=== PATIENT | female | born 1960 | race Caucasian/White ===

== ENCOUNTER → 2017-11-07 | Outpatient (CLI) | payer OTHER ==
[~2017-11-07] MED LIST: LEVO112T2 PO
[2017-11-07 15:42] LABS: MICROSCOPIC NOT IND
[2017-11-07 15:45] LABS: BASOPHILS # (AUTO) 0.03 x10^3/uL (0-0.1); BASOPHILS % (AUTO) 1 % (0-1); EOSINOPHILS # (AUTO) 0.08 x10^3/uL (0-0.4); EOSINOPHILS % (AUTO) 1 % (1-7); LYMPHOCYTES # (AUTO) 2.44 x10^3/uL (1-3.4); LYMPHOCYTES % (AUTO) 43 % (22-44); MD NO; MEAN CORPUSCULAR HEMOGLOBIN 31.6 pg (27.0-34.8); MEAN CORPUSCULAR HGB CONC 33.8 g/dL (32.4-35.8); MEAN CORPUSCULAR VOLUME 93.4 fL (80-100); MEAN PLATELET VOLUME 8.2 fL (7.4-10.4); MONOCYTES # (AUTO) 0.32 x10^3/uL (0.2-0.8); MONOCYTES % (AUTO) 6 % (2-9); NEUTROPHILS # (AUTO) 2.78 x10^3/uL (1.8-6.8); NEUTROPHILS % (AUTO) 49 % (42-75); PLATELET COUNT 282 x10^3/uL (130-400); RED BLOOD COUNT 4.61 x10^6/uL (3.82-5.3); RED CELL DISTRIBUTION WIDTH 14.1 % (9.6-15.2)
[2017-11-07 15:47] LABS: CULTURE INDICATED? NO
[2017-11-07 15:51] LABS: ANION GAP 7 mmol/L (5-15); CALCIUM 8.9 mg/dL (8.5-10.1); CHLORIDE 108 mmol/L (98-107); CREATININE 0.84 mg/dL (0.55-1.02)
[2017-11-07 16:07] LABS: INTERNATIONAL NORMALIZED RATIO 0.96 (0.93-1.1)
== END | disposition home or self-care (01) ==
LOC: STAR 14:36
PROVIDERS: ATTEND Neurological Surgery
DX: Z01.818 Encounter for other preprocedural examination (principal); M43.06 Spondylolysis, lumbar region; M54.16 Radiculopathy, lumbar region
CPT/HCPCS: 36415; 71046; 80048; 81003; 85025; 85610; 85730; 93005

== ENCOUNTER 2017-11-12 10:54 | Inpatient (IN) | payer OTHER ==
[~2017-11-12] VITALS: Ht 160 cm; Wt 71.0 kg
[2017-11-12] MEDS ORDERED: DEXAMETHASONE 4 MG/ML, 1ML ONE (10:56)
[2017-11-12] MEDS ORDERED: SUCCINYLCHOLINE 20 MG/ML, 10ML ONE (10:56)
[2017-11-12] MEDS ORDERED: ROCURONIUM 10MG/ML,5ML ONE (10:56)
[2017-11-12] MEDS ORDERED: CEFAZOLIN 1,000 MG ONE (10:56)
[2017-11-12 11:15] VITALS: BP 114/72
[2017-11-12] MEDS ORDERED: BACITRACIN OINT 500U/GM, 15 GM ONE (11:45)
[2017-11-12] MEDS ORDERED: BUPIVACAINE/PF-EPI 0.25% 1:200K ONE (11:45)
[2017-11-12] MEDS ORDERED: THROMBIN 5,000 UNIT VIAL TP ONE ×2 (11:45→14:09)
[2017-11-12] MEDS ORDERED: BACITRACIN 50,000 UNIT ONE (11:45)
[2017-11-12] MEDS ORDERED: BUPIVACAINE 0.25% ONE (11:45)
[2017-11-12] MEDS ORDERED: MIDAZOLAM 1 MG/ML, 2ML ONE (11:52)
[2017-11-12] MEDS ORDERED: PROPOFOL 50 ML ONE (11:52)
[2017-11-12] MEDS ORDERED: FENTANYL PF 100 MCG/2ML ONE ×2 (11:52→14:42)
[2017-11-12] MEDS ORDERED: BUPIVACAINE/PF-EPI 0.25% 1:200K INFIL ONE (14:08)
[2017-11-12] MEDS ORDERED: BUPIVACAINE 0.25% INFIL ONE (14:08)
[2017-11-12] MEDS ORDERED: BACITRACIN 50,000 UNIT IM ONE (14:09)
[2017-11-12] MEDS ORDERED: HYDROmorphone 1 MG/ML, 1ML IV PRN (14:30)
[2017-11-12] MEDS ORDERED: ACETAMINOPHEN 325 MG TABLET PO PRN (14:30)
[2017-11-12] MEDS ORDERED: HYDROcodone/APAP 7.5-325MG/15ML UDC PO PRN (14:30)
[2017-11-12] MEDS ORDERED: LABETALOL 5MG/ML, 20ML IV PRN ×2 (14:30→16:30)
[2017-11-12] MEDS ORDERED: MEPERIDINE/PF 25MG/0.5ML IVPush PRN (14:30)
[2017-11-12] MEDS ORDERED: ALBUTEROL/IPRATROPIUM 2.5MG/0.5MG, 3 ML NPPB PRN (14:30)
[2017-11-12] MEDS ORDERED: ALBUTEROL SULFATE 2.5 MG/3 ML NPPB PRN (14:30)
[2017-11-12] MEDS ORDERED: hydrALAzine 20 MG/ML, 1ML IV PRN (14:30)
[2017-11-12] MEDS ORDERED: OXYcodone 5 MG/5 ML ORAL.SOL UDC PO PRN (14:30)
[2017-11-12] MEDS ORDERED: DIAZEPAM 5 MG/ML, 2ML IVPush PRN (14:30)
[2017-11-12] MEDS ORDERED: ONDANSETRON 2MG/ML, 2ML IV PRN ×2 (14:30→16:30)
[2017-11-12] MEDS ORDERED: PROMETHAZINE 25 MG/ML, 1ML IV PRN (14:30)
[2017-11-12] MEDS ORDERED: EPHEDRINE 50 MG/ML, 1ML IVPush PRN (14:30)
[2017-11-12] MEDS ORDERED: ONDANSETRON 2MG/ML, 2ML ONE (14:42)
[2017-11-12] MEDS ORDERED: OXYcodone 5 MG/5 ML ORAL.SOL UDC ONE (14:43)
[2017-11-12] MEDS: FENTANYL PF 100 MCG/2ML IV PRN ×2 (14:46→15:08)
[2017-11-12 15:55] VITALS: BP 96/61
[2017-11-12] MEDS ORDERED: BISACODYL 10 MG SUPP PR PRN (16:30)
[2017-11-12] MEDS ORDERED: HYDROmorphone 2MG TABLET PO PRN (16:30)
[2017-11-12] MEDS ORDERED: MAGNESIUM HYDROXIDE 8%, 30ML UDC PO PRN (16:30)
[2017-11-12] MEDS: LABETALOL 5MG/ML, 20ML IV SCH (16:30)
[2017-11-12] MEDS ORDERED: OXYcodone/APAP 5/325MG TABLET PO PRN (16:30)
[2017-11-12] MEDS ORDERED: HYDROmorphone 2 MG/ML, 1ML IM PRN (16:30)
[2017-11-12] MEDS ORDERED: DIPHENHYDRAMINE 50 MG/ML, 1ML IVPush PRN (16:30)
[2017-11-12] MEDS ORDERED: PROMETHAZINE 25 MG/ML, 1ML IM PRN (16:30)
[2017-11-12] MEDS: METHOCARBAMOL 750 MG TABLET PO SCH (16:54)
[2017-11-12] MEDS: D5%-0.9% NACL 1,000 ML IV SCH (16:55)
[2017-11-12] MEDS: CEFAZOLIN PMX 1GM/50ML 50 ML IVPB SCH (18:49)
[2017-11-12 19:18] VITALS: BP 105/63
[2017-11-12] MEDS: HYDROcodone/APAP 5/325 TABLET PO PRN (19:49)
[2017-11-12] MEDS: ATORVASTATIN 40 MG TABLET PO SCH (19:54)
[2017-11-13] VITALS (7 sets, daily range): BP systolic 82–136; BP diastolic 46–68
[2017-11-13] MEDS: METHOCARBAMOL 750 MG TABLET PO SCH ×4 (00:29→23:50)
[2017-11-13] MEDS: LABETALOL 5MG/ML, 20ML IV SCH ×4 (00:30→23:50)
[2017-11-13] MEDS: D5%-0.9% NACL 1,000 ML IV SCH ×3 (03:50→21:04)
[2017-11-13] MEDS: CEFAZOLIN PMX 1GM/50ML 50 ML IVPB SCH (03:50)
[2017-11-13] MEDS: SENNA/DOCUSATE TABLET PO SCH (08:51)
[2017-11-13] MEDS ORDERED: METH750T87 PO (12:54)
[2017-11-13] MEDS ORDERED: OXYC-302 PO (12:54)
[2017-11-13] MEDS ORDERED: ENOXAPARIN 40 MG/0.4 ML SQ SCH (14:00)
[2017-11-13] MEDS: HYDROcodone/APAP 5/325 TABLET PO PRN ×2 (16:38→21:03)
[2017-11-13] MEDS: ATORVASTATIN 40 MG TABLET PO SCH (20:58)
[2017-11-14 01:52] VITALS: BP 88/47
[2017-11-14] MEDS: HYDROcodone/APAP 5/325 TABLET PO PRN (07:12)
[2017-11-14 07:15] VITALS: BP 94/56
[2017-11-14] MEDS: METHOCARBAMOL 750 MG TABLET PO SCH (07:56)
[2017-11-14] MEDS: SENNA/DOCUSATE TABLET PO SCH (07:57)
[2017-11-14] MEDS: D5%-0.9% NACL 1,000 ML IV SCH (07:57)
[2017-11-14] MEDS: LABETALOL 5MG/ML, 20ML IV SCH (07:57)
[2017-11-14 10:35] VITALS: BP 99/61
[2017-11-14] MEDS ORDERED: ATOR40TA78 PO (11:04)
== END 2017-11-14 11:40 | disposition home or self-care (01) | DRG 517 ==
LOC: 4NOR 10:54 → OUT 10:54 → 4NOR 18:45 → OUT 18:45 → DCLOUNGE 11-14 11:02
PROVIDERS: ADMIT Neurological Surgery; ATTEND Neurological Surgery
PROC: 4A11X4G Monitoring of Peripheral Nervous Electrical Activity, Intraoperative, External Approach (ICD-10-PCS; 2017-11-12)
PROC: 01NB0ZZ Release Lumbar Nerve, Open Approach (ICD-10-PCS; principal; 2017-11-12 14:00)
DX: M48.061 Spinal stenosis, lumbar region without neurogenic claudication (principal); M47.26 Other spondylosis with radiculopathy, lumbar region; F17.210 Nicotine dependence, cigarettes, uncomplicated
CPT/HCPCS: 72100; J7042; C1729; J0690; J1100; J1650; J2250; J2405; J2704; J3010; J3490; J0330